=== PATIENT | male | born 1995 | race Hispanic/Latino ===

== ENCOUNTER 2018-01-30 03:15 | Emergency (ER) | payer BC ==
[2018-01-30] MEDS ORDERED: NEOMYCIN/POLYMYXIN/HC OTIC SUSP 10ML BOTTLE ONE (06:54)
== END 2018-01-30 07:11 | disposition home or self-care (01) ==
LOC: EDH 03:15
DX: H60.12 Cellulitis of left external ear (principal); H62.42 Otitis externa in other diseases classified elsewhere, left ear; Z88.0 Allergy status to penicillin; Z88.8 Allergy status to other drugs, medicaments and biological substances